=== PATIENT | male | born 1960 | race Caucasian/White ===

== ENCOUNTER 2016-05-29 08:28 | Day surgery (SDC) | payer BC ==
[~2016-05-29] VITALS: Ht 182.9 cm; Wt 125.5 kg
[2016-05-29 08:37] VITALS: BP 144/89; PULSE 92; TEMP 95.8
[2016-05-29] MEDS ORDERED: NEXIUM 20MG20 MG PO (09:12)
[2016-05-29] MEDS ORDERED: BACTRIM DS 8001 TAB PO (09:13)
[2016-05-29 12:22] VITALS: TEMP 97.6
[2016-05-29 13:00] VITALS: BP 142/93; PULSE 79
[2016-05-29 13:15] VITALS: BP 132/89; PULSE 82
[2016-05-29 13:30] VITALS: BP 143/83; PULSE 79
[2016-05-29 14:28] VITALS: BP 136/82; PULSE 83
== END 2016-05-29 16:08 | disposition home or self-care (01) ==
LOC: SDCO 08:28 → SURG 08:30 → SDCO 16:08
DX: N20.0 Calculus of kidney (principal); E78.00 Pure hypercholesterolemia, unspecified
CPT/HCPCS: OP; C1769; C2617; J0690; J1100; J1940; J2405; J2704; J2765; J3010; J7120; Q9967

== ENCOUNTER 2016-11-03 09:35 | Day surgery (SDC) | payer BC ==
[2016-11-03] VITALS (9 sets, daily range): BP systolic 141–159; BP diastolic 89–95; PULSE 79–94; TEMP 96.9–98.5
[~2016-11-03] VITALS: Ht 183 cm; Wt 121.5 kg
[~2016-11-03 09:35] MED LIST: BACTRIM DS 8001 TAB PO; NEXIUM 20MG20 MG PO
[2016-11-03 10:15] LABS: HEMATOCRIT 42.5 % (42.0-52.0); HEMOGLOBIN 14.9 g/dl (13.5-18.0); MEAN CELL VOLUME 89 fl (80.0-100.0); MEAN CORPUSCULAR HEMOGLOBIN 31 pg (27.0-31.0); MEAN CORPUSCULAR HGB CONC 35 g/dl (33.0-37.0); MEAN PLATELET VOLUME 9.2 fl (7.4-10.4); PLATELET COUNT 226 K/mm3 (130-400); RED BLOOD COUNT 4.78 M/mm3 (4.20-5.60); WHITE BLOOD COUNT 10.1 K/mm3 (4.8-10.8)
[2016-11-03] MEDS ORDERED: FLOMAX 0.40.4 MG/CAP PO (10:21)
[2016-11-03] MEDS ORDERED: NORCO 325 MG-51 TAB PO (10:22)
== END 2016-11-03 20:15 | disposition home or self-care (01) ==
LOC: SDCO 09:35 → SURG 09:35 → SDCO 17:00
PROVIDERS: Urology
DX: N20.1 Calculus of ureter (principal); E78.00 Pure hypercholesterolemia, unspecified; G47.33 Obstructive sleep apnea (adult) (pediatric); K21.9 Gastro-esophageal reflux disease without esophagitis; Z84.1 Family history of disorders of kidney and ureter; Z82.49 Family history of ischemic heart disease and other diseases of the circulatory system; Z83.3 Family history of diabetes mellitus; Z96.0 Presence of urogenital implants; Z90.49 Acquired absence of other specified parts of digestive tract
CPT/HCPCS: OP; C1769; G0378; G0379; J0690; J1100; J2270; J2405; J2704; J3010; J7030; Q9967